=== PATIENT | male | born 1975 | race African-American/Black ===

== ENCOUNTER 2025-06-13 21:17 | Emergency (ER) | payer OTHER ==
[~2025-06-13] VITALS: Ht 188 cm; Wt 88.6 kg
[2025-06-13 23:03] LABS: PLATELET COUNT (AUTO) 336 K/uL (150-450); RED BLOOD CELL COUNT(AUTO) 4.94 MIL/uL (4.50-5.90); RED CELL DISTRIBUTION WIDTH 16.8 % (11.5-14.5); WHITE BLOOD COUNT (AUTO) 7.2 K/uL (4.5-11.0)
[2025-06-13 23:10] LABS: CALCIUM, TOTAL 9.4 mg/dL (8.8-10.5); CREATININE 1.04 mg/dL (0.60-1.30); GLOMERULAR FILTR. RATE CALC > 60 mL/min (>60); GLUCOSE,RANDOM 96 mg/dL (70-110); SODIUM SERUM 138 mmol/L (136-145); UREA NITROGEN, BLOOD 29 mg/dL (7-18)
[2025-06-14 06:18] VITALS: BP 125/94; PULSE 103; RESP 16; TEMP 98.1; O2SAT 99
[2025-06-14] MEDS: OLANZapine 5 MG RAPDIS TABLET PO ONE (06:44)
[2025-06-14 06:54] LABS: COVID AG,FIA SOURCE NASAL SWAB
[2025-06-14 07:38] LABS: SARS-COV2 (COVID) ANTIGEN,FIA Negative (Negative)
== END 2025-06-14 07:11 | disposition home or self-care (01) ==
LOC: EMS 21:17
DX: F19.959 Other psychoactive substance use, unspecified with psychoactive substance-induced psychotic disorder, unspecified (principal); F31.9 Bipolar disorder, unspecified; F20.9 Schizophrenia, unspecified; N50.82 Scrotal pain; Z20.822 Contact with and (suspected) exposure to COVID-19; Z79.899 Other long term (current) drug therapy
CPT/HCPCS: 99283; 87426; 80048; 85025; 36415; G0480

== ENCOUNTER 2025-06-19 06:49 | Emergency (ER) | payer OTHER ==
[~2025-06-19] VITALS: Ht 185.4 cm; Wt 84.1 kg
[2025-06-19 06:53] VITALS: BP 137/84; PULSE 93; RESP 16; TEMP 97.2; O2SAT 99
[2025-06-19] MEDS: KETOROLAC TROMETHAMINE 60 MG/2 ML VIAL IM ONE (08:21)
== END 2025-06-19 09:13 | disposition home or self-care (01) ==
LOC: EMS 06:49
DX: M54.50 Low back pain, unspecified (principal); F20.9 Schizophrenia, unspecified; F31.9 Bipolar disorder, unspecified; W01.0XXA Fall on same level from slipping, tripping and stumbling without subsequent striking against object, initial encounter; Y93.89 Activity, other specified; Y92.89 Other specified places as the place of occurrence of the external cause; Y99.8 Other external cause status
CPT/HCPCS: 99283; 72100; 96372; J1885

== ENCOUNTER 2025-06-19 10:34 | Inpatient (IN) | payer MEDICAID, OTHER ==
[~2025-06-19] VITALS: Ht 185.4 cm; Wt 72.1 kg
[2025-06-19] MEDS: OLANZapine 5 MG RAPDIS TABLET PO ONE (10:49)
[2025-06-19 11:42] LABS: PLATELET COUNT (AUTO) 258 K/uL (150-450); RED BLOOD CELL COUNT(AUTO) 4.68 MIL/uL (4.50-5.90); RED CELL DISTRIBUTION WIDTH 16.2 % (11.5-14.5); WHITE BLOOD COUNT (AUTO) 6.0 K/uL (4.5-11.0)
[2025-06-19 11:50] VITALS: O2SAT 97
[2025-06-19 11:50] LABS: CALCIUM, TOTAL 8.8 mg/dL (8.8-10.5); CREATININE 1.21 mg/dL (0.60-1.30); GLOMERULAR FILTR. RATE CALC > 60 mL/min (>60); GLUCOSE,RANDOM 74 mg/dL (70-110); SODIUM SERUM 143 mmol/L (136-145); UREA NITROGEN, BLOOD 20 mg/dL (7-18)
[2025-06-19 12:32] LABS: COVID AG,FIA SOURCE NASAL SWAB
[2025-06-19 12:51] LABS: SARS-COV2 (COVID) ANTIGEN,FIA Negative (Negative)
[2025-06-19 18:39] VITALS: BP 133/88; PULSE 74; RESP 16; TEMP 97.4; O2SAT 99
[2025-06-19 20:30] VITALS: BP 119/93; PULSE 85; RESP 16; TEMP 97.3; O2SAT 100
[2025-06-20] MEDS ORDERED: BENZOCAINE/MENTHOL [CEPACOL] LOZENGE PO PRN (07:30)
[2025-06-20] MEDS ORDERED: ALBUTEROL SULFATE HFA 90 MCG/PUFF 8 GM INHALER IH PRN (07:30)
[2025-06-20] MEDS ORDERED: BACITRACIN 28 GM OINTMENT TP PRN (07:30)
[2025-06-20] MEDS ORDERED: LOPERAMIDE HCL 2 MG CAPSULE PO PRN (07:30)
[2025-06-20] MEDS ORDERED: PETROLATUM,WHITE 28 GM JELLY TP PRN (07:30)
[2025-06-20 08:45] VITALS: BP 137/90; PULSE 68; RESP 18; TEMP 98.2; O2SAT 99
[2025-06-20 08:54] LABS: CHOL/HDL RATIO 3.5 (4.2-7.3); LDL CHOL (CALC.) 175.0 mg/dL (0-130)
[2025-06-20] MEDS: ROSUVASTATIN CALCIUM 10 MG TABLET PO SCH (20:47)
[2025-06-20 20:57] VITALS: BP 134/89; PULSE 88; RESP 18; TEMP 98.9; O2SAT 99
[2025-06-21] MEDS: MAG HYDROX/ALUMINUM HYD/SIMETH ES 30 ML SUSPENSION UDCUP PO PRN (01:07)
[2025-06-21 08:37] VITALS: BP 106/67; PULSE 66; RESP 16; TEMP 98; O2SAT 100
[2025-06-21] MEDS: ONDANSETRON 4 MG TABLET PO PRN (09:16)
[2025-06-21 20:26] VITALS: BP 115/72; PULSE 78; RESP 17; TEMP 98.2; O2SAT 97
[2025-06-22 08:33] VITALS: BP 137/89; PULSE 72; RESP 16; TEMP 98.1; O2SAT 98
[2025-06-22] MEDS: MAGNESIUM HYDROXIDE SUSPENSION 30 ML UDCUP PO PRN (16:48)
[2025-06-22] MEDS: ZOLPIDEM TARTRATE 10 MG TABLET PO PRN (22:00)
[2025-06-22 22:30] VITALS: BP 139/78; PULSE 78; RESP 16; TEMP 98.5; O2SAT 98
[2025-06-23 08:09] VITALS: BP 140/90; PULSE 88; RESP 17; TEMP 99.1; O2SAT 100
[2025-06-23 20:15] VITALS: BP 137/80; PULSE 88; RESP 18; TEMP 99.1; O2SAT 98
[2025-06-23] MEDS: OMEPRAZOLE 20 MG CAPSULE PO PRN (21:53)
[2025-06-24 08:07] VITALS: BP 117/85; PULSE 87; RESP 18; TEMP 97.8; O2SAT 99
[2025-06-24] MEDS: FAMOTIDINE 20 MG TABLET PO SCH (08:58)
[2025-06-24 20:36] VITALS: BP 106/90; PULSE 107; RESP 18; TEMP 97.8; O2SAT 99
[2025-06-24] MEDS: DOCUSATE SODIUM 100 MG CAPSULE PO PRN (20:41)
[2025-06-25] MEDS ORDERED: LACTULOSE 20 GM/30 ML SOLUTION UDCUP PO SCH (00:15)
[2025-06-25] MEDS: LACTULOSE 20 GM/30 ML SOLUTION UDCUP PO PRN (06:47)
[2025-06-25 08:13] VITALS: BP 135/84; PULSE 82; RESP 18; TEMP 97.8; O2SAT 98
[2025-06-25] MEDS: ACETAMINOPHEN 325 MG TABLET PO PRN (18:05)
[2025-06-25 18:06] VITALS: RESP 18
[2025-06-25 19:05] VITALS: RESP 18
[2025-06-25 20:26] VITALS: BP 114/83; PULSE 73; RESP 17; TEMP 98; O2SAT 99
[2025-06-26 08:14] VITALS: BP 128/79; PULSE 66; RESP 17; TEMP 98.4; O2SAT 96
[2025-06-26 21:04] VITALS: BP 111/63; PULSE 66; RESP 16; TEMP 98.4; O2SAT 97
[2025-06-27 08:29] VITALS: BP 108/65; PULSE 66; RESP 17; TEMP 97.7; O2SAT 100
[2025-06-27 20:17] VITALS: BP 110/70; PULSE 66; RESP 16; TEMP 97; O2SAT 99
[2025-06-28 08:33] VITALS: BP 135/87; PULSE 88; RESP 17; TEMP 98.3; O2SAT 99
[2025-06-28 10:44] VITALS: RESP 17
[2025-06-28] MEDS: IBUPROFEN 600 MG TABLET PO PRN (10:44)
[2025-06-28 11:44] VITALS: RESP 17
[2025-06-28 15:58] VITALS: RESP 17
[2025-06-28 16:58] VITALS: RESP 17
[2025-06-28 20:20] VITALS: BP 128/71; PULSE 91; RESP 18; TEMP 97.8; O2SAT 99
[2025-06-29] MEDS ORDERED: OLAN5TAB52 PO (07:35)
[2025-06-29] MEDS ORDERED: ROSU10TA98 PO (07:52)
[2025-06-29 08:36] VITALS: BP 127/78; PULSE 75; RESP 18; TEMP 98.5; O2SAT 100
[2025-06-30] MEDS ORDERED: OLAN5TAB52 PO (05:23)
[2025-06-30] MEDS ORDERED: ROSU10TA98 PO (05:23)
== END 2025-06-29 08:30 | disposition home or self-care (01) | DRG 761 ==
LOC: EMS 10:34 → B3A 13:12
PROVIDERS: ADMIT Psychiatry & Neurology Psychiatry; ATTEND Psychiatry & Neurology Psychiatry
PROC: GZHZZZZ Group Psychotherapy (ICD-10-PCS; principal; 2025-06-20)
PROC: GZ52ZZZ Individual Psychotherapy, Cognitive (ICD-10-PCS; 2025-06-21)
DX: F25.1 Schizoaffective disorder, depressive type (principal); R45.851 Suicidal ideations; F15.159 Other stimulant abuse with stimulant-induced psychotic disorder, unspecified; I10 Essential (primary) hypertension; J44.9 Chronic obstructive pulmonary disease, unspecified; E78.5 Hyperlipidemia, unspecified; F41.9 Anxiety disorder, unspecified; F17.200 Nicotine dependence, unspecified, uncomplicated; Z20.822 Contact with and (suspected) exposure to COVID-19; F31.9 Bipolar disorder, unspecified; F10.90 Alcohol use, unspecified, uncomplicated; Y90.8 Blood alcohol level of 240 mg/100 ml or more; F12.90 Cannabis use, unspecified, uncomplicated; Z59.00 Homelessness unspecified; Z71.6 Tobacco abuse counseling; Z79.899 Other long term (current) drug therapy
CPT/HCPCS: 80048; 80061; 83036; 85025; 99285; Q0162